=== PATIENT | male | born 1945 | race Caucasian/White ===

== ENCOUNTER 2017-07-25 10:32 | Day surgery (SDC) | payer MEDICARE, MEDICAID ==
[2017-07-24 14:23] VITALS: BMI 18.2
[2017-07-25] MEDS ORDERED: ePHEDrine/0.9% NaCl/PF SYRINGE 50 mg/10 ml ONE (13:03)
[2017-07-25] MEDS ORDERED: Lidocaine 1% PF 5 ML VIAL ONE (13:03)
[2017-07-25] MEDS ORDERED: Propofol 200 MG/20 ML VIAL ONE (13:03)
[2017-07-25] MEDS ORDERED: PHENYLEPHRINE-NS 100 MCG/ML 10 ML SYRINGE ONE (13:03)
--- NOTE | 2017-07-25 13:59 | OP ---
DATE OF PROCEDURE: 07/25/2017 SURGEON: Brayden Cox M.D. PREOPERATIVE DIAGNOSIS: Iron deficiency anemia, chronic, mild. POSTOPERATIVE DIAGNOSES: 1. Normal colonoscopy. 2. 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 3. Hiatal hernia, likely contributing to chronic anemia, no bleeding sites or Fabian's ulcers or er osions. 4. Small bowel duodenum normal, but biopsied to rule out celiac sprue which can be the cause of iron deficiency anemia. RECOMMENDATIONS: 1. Maintenance PPI therapy. 2. Maintenance iron replacement, he should be fine, would not recommend repeat endoscopies unless he has overt GI bleeding. 3. He does not need another screening colonoscopy, he will be age 82 at that time. ANESTHESIA: TIVA. PROCEDURE IN DETAIL: After consent was obtained from caretakers and durable power of assistant county attorney the [place] was brought to endoscopy suite where he was sedated. A bite block was placed in incisural orif ice. The endoscope was advanced through the esophagus, stomach and second and third portion of duode num and slowly removed. There was good visualization of mucosa. The esophagus was normal. The stom ach was notable for hiatal hernia. The antrum of the stomach was notable for some vascular ectasias. These were not bleeding. These are likely the source of the patient's anemia. This is not gastric antral vascular ectasia, more like 10 point erythematous areas. The duodenum was normal to the seco nd and third portions. Biopsies taken for celiac disease. Retroflexed views in the stomach were nor mal. The scope was removed. The patient was turned in the room. A rectal exam was performed. There were no abnormalities. The endoscope was advanced through the anal canal to the colon to cecum which was identified by the ileo cecal valve and appendiceal orifice. There were some poor prep in the rectum which this area could n ot be completely cleared, but otherwise was normal. The scope was removed. The patient tolerated th e procedure well with no complications.
== END 2017-07-25 14:15 | disposition home or self-care (01) ==
LOC: SDC 10:32
PROVIDERS: ATTEND Internal Medicine Gastroenterology
PROC: 0DJD8ZZ Inspection of Lower Intestinal Tract, Via Natural or Artificial Opening Endoscopic (ICD-10-PCS; principal; 2017-07-25)
PROC: 0DB98ZX Excision of Duodenum, Via Natural or Artificial Opening Endoscopic, Diagnostic (ICD-10-PCS; 2017-07-25)
DX: Z12.11 Encounter for screening for malignant neoplasm of colon (principal); K29.80 Duodenitis without bleeding; D50.9 Iron deficiency anemia, unspecified; K31.819 Angiodysplasia of stomach and duodenum without bleeding; K44.9 Diaphragmatic hernia without obstruction or gangrene; Z98.890 Other specified postprocedural states; Z79.899 Other long term (current) drug therapy
CPT/HCPCS: 88305; J2001; J2704